=== PATIENT | male | born 1955 | race Caucasian/White ===

== ENCOUNTER 2016-08-16 13:47 | Outpatient (CLI) | payer OTHER ==
--- NOTE | 2016-08-16 14:36 | DIAGNOSTIC IMAGING REPORT ---
PROCEDURE: XR ABD SERIES 2V ABD/1V CHEST INDICATION: ABDOMINAL PAIN TECHNIQUE: AP supine and upright views of the abdomen with single view of the chest. COMPARISON: None. FINDINGS: CHEST: Lungs are clear. Normal cardiovascular structures. Bony thorax is unremarkable. ABDOMEN: There are several central moderately dilated loops of small bowel with air-fluid levels. Status post colectomy. Right lower quadrant ostomy. No soft-tissue masses or unusual calcifications. No evidence of free air. Osseous structures are unremarkable. IMPRESSION: 1. Colectomy and right lower quadrant ostomy 2. Moderately dilated small bowel with air-fluid levels. Consider gastroenteritis versus distal small bowel obstruction. 3. Results discussed with Dr. Granado.
--- NOTE | 2016-08-16 18:09 | DIAGNOSTIC IMAGING REPORT ---
PROCEDURE: CT ABD/PELVIS WITH CONTRAST CLINICAL INDICATION: ABD PAIN TECHNIQUE: 125 ml of Isovue 300 were injected intravenously and axial images were obtained of the entire abdomen and pelvis with sagittal and coronal reformations. COMPARISON: CT abdomen/pelvis 08/09/2011. FINDINGS: ABDOMEN: Status post colectomy. Right lower quadrant ileostomy. There are several mildly dilated fluid-filled loops of the mid small bowel with air-fluid levels and transition point in the upper pelvis, possibly adjacent to the ileostomy. Distal small bowel has a normal caliber. Calcified left lower lobe granuloma. Heart size is normal. Hepatic steatosis. The gallbladder, pancreas, spleen, adrenal glands and kidneys are unremarkable. Mild atherosclerosis of the aorta. PELVIS: Moderately enlarged prostate. Normal bladder. No evidence of a pelvic mass, free fluid or inflammatory changes. Moderate degenerative changes of the spine. IMPRESSION: 1. Colectomy and right lower quadrant ileostomy 2. Multiple mildly dilated loops of small bowel with air-fluid levels. This may represent an ileus or partial small bowel obstruction with transition point near the ileostomy. 3. Hepatic steatosis 4. Results discussed with Dr. Granado All CT scans at this facility use dose modulation, iterative reconstruction, and/or weight-based dosing when appropriate to reduce radiation dose to as low as reasonably achievable.
== END 2016-08-16 23:00 ==
LOC: XR SRH 13:47
DX: R10.9 Unspecified abdominal pain (principal); K51.90 Ulcerative colitis, unspecified, without complications; Z90.49 Acquired absence of other specified parts of digestive tract; K76.0 Fatty (change of) liver, not elsewhere classified
CPT/HCPCS: 90074; 90100; 95059; 95150